=== PATIENT | male | born 1995 | race African-American/Black ===

== ENCOUNTER → 2017-04-15 | Outpatient (REF) | payer OTHER ==
[~2017-04-15] MED LIST: /ADVA50050; ALBU83IN; CEFZIL250 MG; IBUPROFEN LIQUID; PULMICORT; RITA20TA; TAMIFLU; ZITH250T
== END ==
LOC: M LAB REF 13:00
PROVIDERS: ATTEND Physician Assistant
DX: J02.9 Acute pharyngitis, unspecified (principal)

== ENCOUNTER 2020-05-05 08:02 | Emergency (ER) | payer OTHER, SELFPAY ==
[~2020-05-05] VITALS: Ht 167.6 cm; Wt 104.5 kg
[~2020-05-05 08:02] MED LIST changes: -/ADVA50050; +ADVA1AER2
[2020-05-05] MEDS ORDERED: PANTOPRAZOLE 40MG VIAL (C9113 PER 1) IV ONE (09:00)
[2020-05-05] MEDS ORDERED: NS 1,000 ML IV ONE (09:00)
--- NOTE | 2020-05-05 09:16 | REP ---
INDICATION: Abdominal Pain COMPARISON: None. TECHNIQUE: Upright view of the chest with supine and upright views of the abdomen and pelvis. FINDINGS: Frontal upright view of the chest demonstrates no acute cardiopulmonary process or free air below the diaphragm to suspect pneumoperitoneum. Supine and upright views of the abdomen and pelvis demonstrate nonspecific bowel gas pattern without obstruction or perforation. No organomegaly. No abnormal calcifications. Skeletal structures normal for age. IMPRESSION: Nonspecific bowel gas pattern. <Electronically signed by Diego Douglas > 05/05/20 [id number]
[2020-05-05 09:21] LABS: BASO % 0.2 % (0.0-1.0); EOS # 0.1 10^3/uL (0.0-0.5); EOS % 0.9 % (0.0-3.0); HEMATOCRIT 49.4 % (42.0-52.0); HEMOGLOBIN 16.6 g/dl (13.5-17.5); LYMPH # 1.1 10^3/uL (1.5-5.0); LYMPH % 8.3 % (24.0-44.0); MEAN CORPUSCULAR HEMOGLOBIN 29.1 pg (27.0-33.0); MEAN CORPUSCULAR HGB CONC 33.6 g/dl (32.0-36.5); MEAN CORPUSCULAR VOLUME 86.5 fl (80.0-96.0); MONO # 1.2 10^3/uL (0.0-0.8); MONO % 9.4 % (0.0-5.0); NEUTROPHILS # 10.4 10^3/uL (1.5-8.5); NEUTROPHILS % 80.8 % (36.0-66.0); PLATELET COUNT, AUTOMATED 231 10^3/uL (150-450); RED BLOOD COUNT 5.71 10^6/uL (4.30-6.10); WHITE BLOOD COUNT 12.9 10^3/uL (4.0-10.0)
[2020-05-05 09:45] LABS: ALBUMIN 3.9 GM/DL (3.2-5.2); ALT/SGPT 37 U/L (12-78); BILIRUBIN,DIRECT 0.2 MG/DL (0.0-0.2); BILIRUBIN,TOTAL 0.7 MG/DL (0.2-1.0); BLOOD UREA NITROGEN 19 MG/DL (7-18); CALCIUM LEVEL 8.8 MG/DL (8.5-10.1); CARBON DIOXIDE LEVEL 28 MEQ/L (21-32); CHLORIDE LEVEL 107 MEQ/L (98-107); CK-MB VALUE MASS 2.7 NG/ML (<3.6); CPK CREATINE PHOSPHOKINASE 149 U/L (39-308); CREATININE FOR GFR 1.05 MG/DL (0.70-1.30); GLOMERULAR FILTRATION RATE > 60.0 (>60); GLUCOSE, FASTING 98 MG/DL (70-100); LIPASE 141 U/L (73-393); MB/CK RELATIVE INDEX 1.81 (< OR =4); POTASSIUM SERUM 4.5 MEQ/L (3.5-5.1); SODIUM LEVEL 141 MEQ/L (136-145); TOTAL PROTEIN 6.9 GM/DL (6.4-8.2); TROPONIN I < 0.02 NG/ML (< 0.10)
--- NOTE | 2020-05-05 09:48 | REP ---
INDICATION: epigastric, RUQ pain COMPARISON: None. TECHNIQUE: Real time paulino scale ultrasound examination using curved array transducer. FINDINGS: Liver is normal in contour, size, and echogenicity without focal hepatic lesions identified. Pancreas is incompletely evaluated due to interposed bowel gas. The gallbladder is normal and without gallstones, wall thickening, or pericholecystic fluid. No biliary ductal dilatation is appreciated and the common bile duct measures 4.7 mm diameter. Right kidney is normal in reniform shape without hydronephrosis and measures 9.4 x 5.2 x 3.7 cm. No ascites in the visualized right upper quadrant. IMPRESSION: Normal gallbladder/right upper quadrant ultrasound <Electronically signed by Diego Douglas > 05/05/20 [id number]
[2020-05-05] MEDS ORDERED: GI COCKTAIL 50ML BTL(HYOSCYAMINE/MAALOX/LIDOCAINE VISCOUS)(1:3:1) PO ONE (10:00)
[2020-05-05] MEDS ORDERED: ISOVUE-370 76% 100ML VIAL As Ordered ONE (11:12)
--- NOTE | 2020-05-05 11:29 | REP ---
INDICATION: epigastric "pressure" COMPARISON: None. TECHNIQUE: Axial contrast enhanced images from the thoracic inlet to the upper abdomen using pulmonary embolus technique with multiplanar re-formations. 100 ml Isovue 370 intravenous contrast material administered without complication. This CT examination was performed using the following dose reduction techniques: Automated exposure control, adjustment of mA and/or kv according to the patient's size, and use of iterative reconstruction technique. FINDINGS: Satisfactory enhancement of the pulmonary vasculature is achieved and no filling defects are identified to suggest pulmonary embolus. Further evaluation of the mediastinum demonstrates normal thoracic aorta, heart and pericardium. The bilateral lung michael are well aerated and clear without consolidation pleural effusion or pneumothorax. Tracheobronchial tree is patent. No nodule or mass lesion is identified. No adenopathy noted. Surrounding musculoskeletal structures intact IMPRESSION: No evidence for pulmonary embolus. No acute mediastinal or pleural parenchymal process. <Electronically signed by Diego Douglas > 05/05/20 0082
--- NOTE | 2020-05-05 11:32 | REP ---
INDICATION: epigastric "pressure". COMPARISON: None TECHNIQUE: Axial contrast-enhanced images from the lung bases to the pubic symphysis using 100 cc Isovue 370 intravenous contrast material. . This CT examination was performed using the following dose reduction techniques: Automated exposure control, adjustment of mA and/or kv according to the patient's size, and the use of iterative reconstruction technique. FINDINGS: Liver, spleen, pancreas, gallbladder, bilateral adrenal glands and kidneys are normal. The enteric system including stomach, small, and large bowel appears normal. No evidence for obstruction or acute inflammatory process. Normal terminal ileum and appendix are identified in the right lower quadrant. Pelvis demonstrates normal bladder and age-appropriate prostate/seminal vesicles. No ascites. No free air. No intraperitoneal or retroperitoneal adenopathy. Abdominal aorta and vasculature appear normal. Musculoskeletal structures are intact and without acute osseous abnormality. IMPRESSION: No acute abdominopelvic pathology appreciated. <Electronically signed by Diego Douglas > 05/05/20 [id number]
[2020-05-05 12:18] LABS: CK-MB VALUE MASS 2.4 NG/ML (<3.6); CPK CREATINE PHOSPHOKINASE 119 U/L (39-308); MB/CK RELATIVE INDEX 2.02 (< OR =4); TROPONIN I < 0.02 NG/ML (< 0.10)
[2020-05-05] MEDS ORDERED: OMEP40CA97 PO (12:32)
[2020-05-05] MEDS ORDERED: CARA1TAB6 PO (12:32)
[2020-05-05 12:41] VITALS: BP 134/79
--- NOTE | 2020-05-06 08:47 | ECGEPIP ---
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
--- NOTE | 2020-05-06 08:50 | ECGEPIP ---
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
== END 2020-05-05 12:43 | disposition home or self-care (01) ==
LOC: M ED 08:02
DX: K29.70 Gastritis, unspecified, without bleeding (principal); R10.13 Epigastric pain; J45.909 Unspecified asthma, uncomplicated; F90.9 Attention-deficit hyperactivity disorder, unspecified type; F17.220 Nicotine dependence, chewing tobacco, uncomplicated; Z88.0 Allergy status to penicillin
CPT/HCPCS: 36415; 71275; 74021; 74177; 76705; 80048; 80076; 82550; 82553; 83690; 84484; 85025; 93005; 96361; 96374; 99284; C9113; Q9967

== ENCOUNTER 2020-07-16 16:53 | Emergency (ER) | payer OTHER, SELFPAY ==
[~2020-07-16] VITALS: Ht 167.6 cm; Wt 104.5 kg
[~2020-07-16 16:53] MED LIST changes: +CARA1TAB6 PO; +OMEP40CA97 PO
[2020-07-16] MEDS ORDERED: LIDOCAINE 2% W/EPINEPHRINE 20ML VIAL **PRES FREE INJ ONE (18:10)
[2020-07-16] MEDS ORDERED: BOOSTRIX/ADACEL VACCINE (DIPHTH/PERTUSS/ACELL/TETANUS) 0.5ML SYR IM ONE (18:15)
[2020-07-16] MEDS ORDERED: CLEO300C2 PO (18:54)
[2020-07-16 19:36] VITALS: BP 154/80
== END 2020-07-16 19:37 | disposition home or self-care (01) ==
LOC: M ED 16:53
DX: S41.112A Laceration without foreign body of left upper arm, initial encounter (principal); W26.8XXA Contact with other sharp object(s), not elsewhere classified, initial encounter; Z88.0 Allergy status to penicillin; Y92.9 Unspecified place or not applicable; Y99.0 Civilian activity done for income or pay; Y93.9 Activity, unspecified

== ENCOUNTER 2020-07-30 14:31 | Emergency (ER) | payer OTHER, SELFPAY ==
[~2020-07-30] VITALS: Ht 167.6 cm; Wt 104.5 kg
[2020-07-30 14:31] VITALS: BP 142/86
[~2020-07-30 14:31] MED LIST changes: +CLEO300C2 PO
[2020-07-30] MEDS ORDERED: CLEO300C2 PO (17:12)
== END 2020-07-30 17:16 | disposition home or self-care (01) ==
LOC: M ED 14:31
DX: Z48.02 Encounter for removal of sutures (principal); Z88.0 Allergy status to penicillin